=== PATIENT | male | born 1945 | race Caucasian/White ===

== ENCOUNTER 2018-08-30 07:44 | Day surgery (SDC) | payer MEDICARE ==
[2018-08-30] VITALS (11 sets, daily range): BP systolic 89–151; BP diastolic 54–87
[~2018-08-30] VITALS: Ht 180.3 cm; Wt 85.6 kg
[2018-08-30] MEDS ORDERED: diphenhydrAMINE 25mg capsule PO PRN (08:10)
[2018-08-30] MEDS ORDERED: sod bicarbonate 150mEq in D5W 1,150 ML IV ONE (08:10)
[2018-08-30] MEDS ORDERED: normal saline 1000ml 1,000 ML IV SCH (08:20)
[2018-08-30] MEDS ORDERED: MULT-1180 PO (08:39)
[2018-08-30] MEDS ORDERED: FERR134T2 PO (08:39)
[2018-08-30] MEDS ORDERED: CARV3.122 PO (08:39)
[2018-08-30] MEDS ORDERED: IRBE150T51 PO (08:39)
[2018-08-30] MEDS ORDERED: METF-436 PO (08:39)
[2018-08-30] MEDS ORDERED: FURO-149 PO (08:39)
[2018-08-30] MEDS ORDERED: ASPI-1265 PO (08:39)
[2018-08-30] MEDS ORDERED: ATOR40TA71 PO (08:39)
[2018-08-30] MEDS ORDERED: [UNRECOGNIZED DRUG - CODE] PO (08:39)
[2018-08-30] MEDS ORDERED: VERA180T7 PO (08:39)
[2018-08-30 09:07] LABS: BASOPHILS % (AUTO) 0.2 % (0-1); EOSINOPHILS # (AUTO) 0.2 X10'3 (0-0.9); EOSINOPHILS % (AUTO) 2.3 % (0-6); HEMOGLOBIN 12.5 g/dl (14.0-17.9); MEAN CORPUSCULAR HEMOGLOBIN 28.2 PG (27.0-31.0); MEAN CORPUSCULAR HGB CONC 32.1 % (33.0-36.5); MEAN CORPUSCULAR VOLUME 87.8 FL (78-98); MEAN PLATELET VOLUME 9.3 FL (7.4-10.4); MONOCYTES # (AUTO) 0.7 X10'3 (0-0.9); MONOCYTES % (AUTO) 7.2 % (2-12); NEUTROPHILS # (AUTO) 7.4 X10'3 (1.8-7.7); NEUTROPHILS % (AUTO) 79.3 % (42-75); PLATELET COUNT 235 X10'3 (140-440); RED BLOOD COUNT 4.44 X10'6 (4.70-6.10); RED CELL DISTRIBUTION WIDTH 17.3 % (11.5-14.5); WHITE BLOOD COUNT 9.3 X10'3 (4.5-11.0)
[2018-08-30] MEDS ORDERED: iohexol 350 MG/ML 50ML vial IV ONE (09:07)
[2018-08-30] MEDS ORDERED: LIDOcaine 1% (10mg/ml)w/preservative injection 20ml MDV ONE (09:07)
[2018-08-30] MEDS ORDERED: iohexol 350MG/ML 100ml bottle IV ONE (09:07)
[2018-08-30] MEDS ORDERED: midazolam 2 mg/2 ml injection ONE (09:07)
[2018-08-30] MEDS ORDERED: fentaNYL/PF 50MCG/1 ML 2ML syringe ONE (09:07)
[2018-08-30 09:10] LABS: ALBUMIN 3.4 G/DL (3.4-5.0); ANION GAP 12 (8-16); BLOOD UREA NITROGEN 30 MG/DL (7-18); BUN/CREATININE RATIO 20.7 (5.4-32.0); CALCIUM 9.7 MG/DL (8.5-10.1); CHLORIDE 103 MMOL/L (99-107); CREATININE 1.45 MG/DL (0.60-1.10); GLUCOSE 251 MG/DL (70-104); MAGNESIUM 1.6 MG/DL (1.5-2.4); POTASSIUM 3.5 MMOL/L (3.5-5.1); PROTHROMBIN TIME 10.7 SECONDS (9.0-12.0); SODIUM 140 MMOL/L (135-145); TOTAL CARBON DIOXIDE 24.9 MMOL/L (24-32); eGFR 48 ML/MIN
[2018-08-30 09:11] LABS: INR 1.1 INR
[2018-08-30] MEDS ORDERED: adenosine 90 MG/30ml kit =/or below 120kg Cath Lab IV ONE (09:54)
== END 2018-08-30 14:00 | disposition home or self-care (01) ==
LOC: SSTAY O 07:44
PROVIDERS: ATTEND Internal Medicine Cardiovascular Disease
DX: I25.10 Atherosclerotic heart disease of native coronary artery without angina pectoris (principal); I34.0 Nonrheumatic mitral (valve) insufficiency; I42.0 Dilated cardiomyopathy; E78.5 Hyperlipidemia, unspecified; E11.22 Type 2 diabetes mellitus with diabetic chronic kidney disease; I12.9 Hypertensive chronic kidney disease with stage 1 through stage 4 chronic kidney disease, or unspecified chronic kidney disease; N18.2 Chronic kidney disease, stage 2 (mild); Z87.891 Personal history of nicotine dependence; Z87.01 Personal history of pneumonia (recurrent); Z86.79 Personal history of other diseases of the circulatory system; Z79.82 Long term (current) use of aspirin; Z79.899 Other long term (current) drug therapy; Z79.84 Long term (current) use of oral hypoglycemic drugs; Z98.890 Other specified postprocedural states; Z82.49 Family history of ischemic heart disease and other diseases of the circulatory system; Z80.9 Family history of malignant neoplasm, unspecified; Z83.3 Family history of diabetes mellitus
CPT/HCPCS: 36415; 80048; 82948; 83735; 85025; 85610; 93005; 93458; 93571; 99152; 99153; A6257; C1760; C1769; J0153; J1644; J2001; J2250; J3010; J7030; Q0163; Q9967; A4620; C1894